=== PATIENT | female | born 2000 | race Caucasian/White ===

== ENCOUNTER 2019-05-22 16:45 | Emergency (ER) | payer BC, SELFPAY ==
[2019-05-22 16:46] VITALS: BP 116/57; PULSE 71; RESP 16; TEMP 36.9; O2SAT 100; BMI 21.5
--- NOTE | 2019-05-22 18:15 | ED.VIS.GEN ---
History of Present Illness Informant: Patient Narrative: 19-year-old female presents after head injury. Patient states that she was playing in a collegiate basketball game and tripped and fell into a wall. States that she fell into the corner of a wall and then fell onto the ground. Denies any loss of consciousness. Denies any vision changes nausea vomiting. States that her tetanus is up-to-date. <Rod Elias - Last Filed: 05/22/19 18:22> <Zheng Gomez - Last Filed: 05/22/19 18:24> Chief Complaint: Head Injury Past Medical History Smoking Status: Never smoker <Rod Elias - Last Filed: 05/22/19 18:22> <Zheng Gomez - Last Filed: 05/22/19 18:24> - Allergies and Home Meds Allergies/Adverse Reactions: Allergies amoxicillin [From Augmentin] Allergy (Verified 05/22/19 16:48) Rash clavulanic acid [From Augmentin] Allergy (Verified 05/22/19 16:48) Rash Primary Care Physician: KENZIE NORRIS [Other] - 10-14 Days suture removal Review of Systems General: Denies: Chills, Fever Eyes: Denies: Visual changes - bilaterally, Blurred Vision - bilaterally ENT: Denies: Bilateral ear pain Gastrointestinal: Denies: Nausea, Vomiting Musculoskeletal: Denies: Neck pain, Back pain Skin: Reports: Abrasions, Wounds Neurological: Denies: Headache, Weakness, Parasthesia <Rod lEias - Last Filed: 05/22/19 18:22> Physical Exam Vital Signs/Narrative: Vital Signs Temp Pulse Resp BP Pulse Ox 05/22/19 16:46 98.4 F 71 16 116/57 L 100 General: Well nourished, Well developed Head: - - 1.5 cm laceration to the right occiput eating ENT: - Cardiovascular: - - Midline C-spine tenderness or step-offs Abdomen: Soft, Nontender Back: Nontender Extremities: - - Patient to right shoulder and full range of motion of upper extremities. Neurological: Alert, Oriented x3, Normal Sensation <Rod Elias - Last Filed: 05/22/19 18:22> Vital Signs/Narrative: Vital Signs Temp Pulse Resp BP Pulse Ox 05/22/19 16:46 98.4 F 71 16 116/57 L 100 <Zheng Gomez - Last Filed: 05/22/19 18:24> Diagnostic/Tx/Re-eval - Medical Decision Making Was evaluated for laceration. Did have a head injury. No LOC. Appears well and is having no nausea and vomiting. Does have a 1.5 cm laceration to posterior occiput. This was approximated with 2 pily. Patient educated on signs and symptoms to look out for. Instructed to follow-up with primary care provider in 10-14 days to have sutures removed. Patient in agreement the plan and discharged home <Rod Elias - Last Filed: 05/22/19 18:22> - Medical Decision Making Seen and evaluated independently and in conjunction with resident physician. Agree with notes above unless documented otherwise. Correction: Patient to have pily removed 5-6 days. She does not currently have concussion symptoms, however we discussed with her that she could develop them within the next 24 hours, and in that case, she would need to consult with trainers prior to playing. She is fine to play with the sutures/laceration, she was given a note saying so. <Zheng Gomez - Last Filed: 05/22/19 18:24> Procedures - Lacerations No standard instances Length: 1.5 m Depth: Sub Q Shape: Linear Laceration repair: Irrigated, Lidocaine with epi, Wound explored Irrigated (ml): 30 Number of Sutures/Pily: 2 <Rod Elias - Last Filed: 05/22/19 18:22> ED Disposition <Rod Elias - Last Filed: 05/22/19 18:22> <Zheng Gomez - Last Filed: 05/22/19 18:24> - Plan for ED Patient: Disposition: Home or Assisted Living Diagnosis: Occipital scalp laceration Instructions: LACERATION, Scalp Referrals: MYRNA,KENZIE [Other] - 5 Days for suture removal
[2019-05-22 18:31] VITALS: RESP 14
== END 2019-05-22 18:31 | disposition home or self-care (01) ==
PROVIDERS: Emergency Provider Emergency Medicine
DX: S01.01XA Laceration without foreign body of scalp, initial encounter (principal); W01.118A Fall on same level from slipping, tripping and stumbling with subsequent striking against other sharp object, initial encounter; Y93.67 Activity, basketball; Y92.310 Basketball court as the place of occurrence of the external cause; Y99.8 Other external cause status
CPT/HCPCS: 12001; 99282